=== PATIENT | female | born 1970 | race Caucasian/White ===

== ENCOUNTER 2017-11-16 14:46 | Emergency (ER) | payer MEDICARE, OTHER ==
[2017-11-16] MEDS ORDERED: 0.9 % SODIUM CHLORIDE 1,000 ML BAG IV ONE (14:50)
[2017-11-16] MEDS ORDERED: ASPIRIN 81 MG CHEWABLE TABLET PO ONE (14:50)
[2017-11-16] MEDS ORDERED: ONDANSETRON HCL IV 4 MG/2 ML VIAL IVP ONE (14:50)
[2017-11-16] MEDS ORDERED: MORPHINE SULFATE 4MG/ML PREFILLED SYRINGE IVP ONE (14:59)
--- NOTE | 2017-11-16 14:59 | Emergency Department Record ---
History of Present Illness - General Chief Complaint: Chest Pain Stated Complaint: CHEST PAIN Source: Patient Mode of Arrival: Ambulatory Limitations: No limitations - History of Present Illness Initial Comments: 46 yo female presents with right lower chest pain that she describes as a squeeze or pressure. The onset was this morning around 9am. The discomfort comes and goes. She has some nausea associated. No known history of heart disease. The pain in over the right lower chest/RUQ and radiates up the chest. She feels fatigued and tired. No back pain. No leg pain that is new. The pain is not related to position or exertion. She has RA and deals with chronic pain. She is a smoker with elevated cholesterol. Her PCP is Dr Perez. No prior cardiac care or testing. She has noted for some time that eating can bring on a similar pain in the RUQ but it does not usually radiate to the chest. No prior US to check for gall stones. MD Complaint: Chest pain -: Hour(s) (6) Onset: During rest Pain Location: Substernal Pain Radiation: Abdomen Severity: Moderate Quality: Tightness Consistency: Intermittent Improves With: Nothing Worsens With: Nothing Anginal Symptoms: Dyspnea, Nausea Treatments Prior to Arrival: None - Related Data Home Medications Medication Instructions Recorded Confirmed Last Taken Ascorbic Acid [Vitamin C] 1,000 mg PO DAILY 11/16/17 11/16/17 11/16/17 Calcium Carbonate [Calcium] 600 mg PO DAILY 11/16/17 11/16/17 11/16/17 Celecoxib [Celebrex] 200 mg PO DAILY 11/16/17 11/16/17 11/16/17 Clotrimazole/Betamethasone Dip 1 apply TOP ASDIR 11/16/17 11/16/17 11/16/17 [Lotrisone] Diclofenac Sodium [Voltaren] 1 apply TOP ASDIR 11/16/17 11/16/17 11/16/17 Lansoprazole [Prevacid] 30 mg PO DAILY 11/16/17 11/16/17 11/16/17 Multivitamin,Therapeutic [Thera] 1 each PO DAILY 11/16/17 11/16/17 11/16/17 Ranitidine HCl [Zantac] 150 mg PO BID 11/16/17 11/16/17 11/16/17 Teriparatide [Forteo] 2.4 ml SQ DAILY 11/16/17 11/16/17 11/16/17 Allergies Allergy/AdvReac Type Severity Reaction Status Date / Time No Known Drug Allergies Allergy Verified 11/16/17 14:49 Review of Systems Constitutional: Denies: Chills, Fever, Malaise, Weakness Eyes: Denies: Eye discharge, Eye pain ENT: Denies: Congestion, Dental pain, Epistaxis, Throat pain Respiratory: Reports: Dyspnea. Denies: Cough, Hemoptysis, Wheezes Cardiovascular: Reports: Chest pain. Denies: Dyspnea on exertion, Edema, Palpitations, Syncope Endocrine: Denies: Fatigue, Polydipsia, Polyuria Gastrointestinal: Reports: Nausea, Other (GERD). Denies: Abdominal pain, Diarrhea, Vomiting Genitourinary: Denies: Dysuria, Urgency Musculoskeletal: Reports: As per HPI, Arthralgia, Joint swelling, Myalgia. Denies: Back pain, Neck pain Skin: Denies: Bruising, Change in color, Rash Neurological: Denies: Headache, Numbness, Weakness Psychiatric: Denies: Anxiety Hematological/Lymphatic: Denies: Blood Clots, Easy bleeding, Easy bruising, Swollen glands Past Medical History - SOCIAL HISTORY Smoking Status: Current some day smoker - RESPIRATORY Hx Respiratory Disorders: No - CARDIOVASCULAR Hx Cardio Disorders: No - NEURO Hx Neuro Disorders: Yes Hx Headaches: Yes - GI Hx GI Disorders: No - Hx Genitourinary Disorders: Yes Hx Kidney Stones: Yes - ENDOCRINE Hx Endocrine Disorders: No - MUSCULOSKELETAL Hx Musculoskeletal Disorders: No - PSYCH Hx Psych Problems: No - HEMATOLOGY/ONCOLOGY Hx Hematology/Oncology Disorders: No Physical Exam - General General Appearance: Alert, Oriented x3, Cooperative, No acute distress Limitations: No limitations - Head Head exam: Normal inspection - Eye Eye exam: Normal appearance, PERRL. negative: Conjunctival injection, Scleral icterus - ENT ENT exam: Normal exam Ear exam: Normal external inspection Nasal Exam: Normal inspection Mouth exam: Normal external inspection Teeth exam: Normal inspection - Neck Neck exam: Normal inspection, Full ROM. negative: Tenderness - Respiratory Respiratory exam: Normal lung sounds bilaterally. negative: Respiratory distress - Cardiovascular Cardiovascular Exam: Regular rate, Normal rhythm, Normal heart sounds Peripheral Pulses: 2+: Radial (R), Radial (L) - GI/Abdominal GI/Abdominal exam: Soft. negative: Tenderness - Rectal Rectal exam: Deferred - exam: Deferred - Extremities Extremities exam: Normal inspection, Full ROM, Normal capillary refill. negative: Tenderness - Back Back exam: Reports: Normal inspection, Full ROM. Denies: Muscle spasm, Rash noted, Tenderness - Neurological Neurological exam: Alert, Normal gait, Oriented X3 - Psychiatric Psychiatric exam: Normal affect, Normal mood - Skin Skin exam: Dry, Intact, Normal color, Warm Course - Reevaluation(s) Reevaluation #1: 11/16/17 15:15 EKG 1451 NSR rate 86, intervals normal, axis N, ST NS septal changes. 11/16/17 15:32 No changes on the BMP 11/16/17 15:33 The patient reports she is relaxed and no pain at this time. 11/16/17 15:47 The Troponin was normal at <0.01 The CXR was reviewed and is negative 11/16/17 16:03 The case and EKG were discussed with Dr Monk of cardiology. He personally reviewed the EKG. Given the onset of pain was over 6 hours he recommends doing a stress test this afternoon. The patient was informed and agrees. The order was placed. 11/16/17 16:09 11/16/17 17:01 Dr Monk reviewed the stress test. The stress test was normal for 8 minutes and 10 METS. No signs of cardiac ischemia. Given the RUQ pain. I recommend US as well today. The patient agrees. She tolerated the stress test well. 11/16/17 18:22 The abdominal US was negative for gall stones DC home with referral to GI for recurrent abdominal pain in the upper right and epigastric Medical Decision Making - Lab Data Result diagrams: 11/16/17 14:50 11/16/17 14:50 Disposition Disposition: Discharge Clinical Impression: Atypical chest pain, RUQ pain Disposition: Home, Self-Care Condition: (1) Good Instructions: Chest Pain (ED), Abdominal Pain (ED) Additional Instructions: Call your doctor to be seen this week for close follow up You have been referred for a GI consultation Return to the ER if you have any return of chest pain Referrals: RUBÉN ARCE [MEDICAL DOCTOR] - Forms: Patient Portal Access Time of Disposition: 18:27 Quality - Quality Measures Quality Measures: N/A - Blood Pressure Screening Does Patient Have Any of the Following: No Blood Pressure Classification: Pre-Hypertensive BP Reading Systolic Measurement: 137 Diastolic Measurement: 87 Screening for High Blood Pressure: < Pre-Hypertensive BP, F/U Documented > [ G8950] Pre-Hypertensive Follow-up Interventions: Referral to alternative/primary care provider.
[2017-11-16 15:01] LABS: BASO % 0.3 % (0-6); EOS % 2.4 % (0-6); GRAN % 59.5 % (47-80); HEMATOCRIT 43.2 % (35.0-47.0); HEMOGLOBIN 14.4 gm/dl (11.6-16.0); LYMPH % 31.3 % (16-45); MEAN CELL VOLUME 92.3 fl (81-97); MEAN CORPUSCULAR HEMOGLOBIN 30.8 pg (27-33); MEAN CORPUSCULAR HGB CONC 33.3 g/dl (32-36); MEAN PLATELET VOLUME 9.4 fl (7.4-10.4); MONO % 6.5 % (0-9); PLATELET COUNT 311 K/uL (130-400); RED BLOOD COUNT 4.68 M/uL (3.80-5.40); RED CELL DISTRIBUTION WIDTH 13.8 % (11.5-14.5); WHITE BLOOD COUNT W/O DIFF 9.6 K/uL (4.2-12.2)
[2017-11-16 15:14] LABS: PROTHROMBIN TIME (PATIENT) 10.9 SECONDS (9.5-12.1)
[2017-11-16 15:15] LABS: BLOOD UREA NITROGEN 19 mg/dL (6-20); CREATININE 0.6 mg/dL (0.5-0.9); EST GLOMERULAR FILTRATION RATE > 60 mL/min; TOTAL PROTEIN 7.5 g/dL (6.6-8.7)
[2017-11-16 15:17] LABS: GLUCOSE,RANDOM 91 mg/dL (74-109)
[2017-11-16 15:20] LABS: ALB/GLOB RATIO 1.6 (1.1-1.8); ALBUMIN 4.6 g/dL (4.0-5.0); ALKALINE PHOSPHATASE 92 U/L (35-104); ALT/SGPT 24 U/L (<33); AST/SGOT 22 U/L (10.0-35.0)
--- NOTE | 2017-11-16 20:25 | Stress Test Report ---
DATE OF PROCEDURE: 11/16/2017 INTERPRETING PHYSICIAN: Nehemiah Monk M.D. PRIMARY CARE PHYSICIAN: Dr. Delia Perez REFERRING PHYSICIAN: Dr. Wang Diggs INDICATIONS: Chest pain. The patient's resting ECG shows a sinus rhythm but nonspecific T-wave changes in the anteroseptal leads. The patient was exercised on a motorized treadmill using a standard Tung protocol for a total of 8 minutes and 40 seconds achieving 154 beats per minute , which is 89% of the maximum predicted heart rate for her age. The patient's resting blood pressure was 126/71 mmHg and her peak blood pressure was 153/81 mmHg. The patient didn't have an abnormal symptoms during the stress test. The stress test was stopped because of achievement of the target heart rate as well as fatigue. The patient's ECG doesn't show any significant ST or T-wave changes suggestive of ischemia. No arrhythmia is seen either. IMPRESSION: 1. NORMAL ECG RESPONSE TO EXERCISE STRESS WHILE ACHIEVING 9.5 METS OF WORKLOAD. 2. AVERAGE EXERCISE CAPACITY FOR AGE. JOB NUMBER: [id number] MTDD
--- NOTE | 2017-11-17 12:50 | RADIOLOGY REPORT ---
EXAM: CHEST, SINGLE VIEW HISTORY: CHEST PAIN. TECHNIQUE: A single frontal view of the chest was obtained. Comparison: None. FINDINGS: The heart size is at the upper limits of normal. Osteopenia. The lungs are clear. No pneumothorax. IMPRESSION: NO ACUTE CARDIOPULMONARY PROCESS. JOB NUMBER: [id number] MTDD
--- NOTE | 2017-11-17 12:57 | ULTRASOUND REPORT ---
EXAM: COMPLETE ABDOMEN ULTRASOUND HISTORY: RIGHT UPPER QUADRANT ABDOMINAL PAIN. ACID REFLUX. NAUSEA. TECHNIQUE: Complete real-time ultrasound examination of the abdomen was performed. Comparison: None. FINDINGS: The majority of the pancreas was visualized and was negative as seen with no pancreatic mass or peripancreatic fluid collection evident. There is probably some mild atheromatous plaque in the abdominal aorta, but no aneurysm evident. The IVC was negative as seen. The liver appears negative with no definite hepatic mass or intrahepatic biliary dilatation seen. The right kidney measures about 12 cm in length with no hydronephrosis evident. No gallstones seen within the gallbladder and no pericholecystic fluid collection evident. The apprentice instrument technician indicates a negative sonographic Martinez's sign as well. The common duct was seen and was of normal caliber. The spleen appears negative. The left kidney measures about 13 cm in length with no hydronephrosis evident. IMPRESSION: THE EMERGENCY ABDOMINAL ULTRASOUND APPEARS ESSENTIALLY NEGATIVE. NO GALLSTONES OR BILIARY DILATATION SEEN. NO HYDRONEPHROSIS IDENTIFIED. JOB NUMBER: [id number] MTDD
== END 2017-11-16 18:42 | disposition home or self-care (01) ==
LOC: ER 14:46
DX: R07.89 Other chest pain (principal); R10.11 Right upper quadrant pain; R11.0 Nausea; R06.00 Dyspnea, unspecified; F17.210 Nicotine dependence, cigarettes, uncomplicated
CPT/HCPCS: 99284 ×2; 96374; 96375; 83690; 85025; 85730; 85610; 80053; 84484; 71045; 76700; 93017; J2405; J2274; J7030

== ENCOUNTER 2018-05-19 10:34 | Day surgery (SDC) | payer MEDICARE, OTHER ==
[2018-05-19] MEDS ORDERED: LIDOCAINE 2% MDV (20MG/ML) 20ML VIAL IV ONE (10:35)
[2018-05-19] MEDS ORDERED: PROPOFOL 10 MG/ML VIAL IV ONE (10:35)
--- NOTE | 2018-05-20 10:30 | Operative Note ---
DATE OF SURGERY: 2017 OPERATION: ESOPHAGOGASTRODUODENOSCOPY with biopsy. PREOPERATIVE DIAGNOSIS: Dyspepsia. POSTOPERATIVE DIAGNOSIS: Irregular Z line and nonspecific gastritis. PROCEDURE: After informed consent was obtained from the patient, she was placed in the left lateral decubitus position in the endoscopy suite, sedated and monitored by the department of anesthesia. Once sedated, a well-lubricated [id number] gastroscope was placed in the posterior oropharynx and under direct visualization passed to the proximal esophagus. The endoscope was advanced through the proximal, mid, and distal esophagus. The GE junction was slightly irregular. No ulcers, erosions, strictures, varices, or mass lesions were seen. The gastric body demonstrated normal distensibility, normal rugal folds. There were flecks of heme throughout the gastric body and the antrum but no dawood ulcers or erosions were seen. The pylorus, duodenal bulb, and sweep were unremarkable. J-turn views of the proximal stomach were unremarkable as well. The endoscope was straightened. Random gastric biopsies were obtained. GE junction biopsies were obtained. The endoscope was removed from the patient with no new findings noted. RECOMMENDATIONS: I would suggest the patient be seen by Dr. Boogie for evaluation of possible normokinetic biliary issues. We will await results of the biopsies in the meantime. Also, the patient should have a colonoscopy scheduled at some point in the near future. As always, thank you for allowing me to participate in the healthcare of your patients. CC: Delia Perez MD [facility]ITAL[facility]
== END 2018-05-19 12:20 | disposition home or self-care (01) ==
LOC: HOP 10:34
PROVIDERS: ATTEND Internal Medicine Gastroenterology
DX: R10.13 Epigastric pain (principal); K31.89 Other diseases of stomach and duodenum; K29.70 Gastritis, unspecified, without bleeding

== ENCOUNTER 2018-05-30 07:25 | Day surgery (SDC) | payer MEDICARE, OTHER ==
[~2018-05-30 07:25] MED LIST: ACETAMINOPHEN 1,000 MG/100 ML BTL IV ONE; FAMOTIDINE 20MG TABLET PO ONE; MECLIZINE 25 MG TABLET PO ONE; METOCLOPRAMIDE 10 MG TABLET PO ONE
[2018-05-30] MEDS ORDERED: ROCURONIUM BROMIDE 50MG/5ML VIAL IV ONE (07:26)
[2018-05-30] MEDS ORDERED: DEXAMETHASONE 4 MG/ML 1ML VIAL IVP ONE (07:26)
[2018-05-30] MEDS ORDERED: FENTANYL PF 100MCG/2ML VIAL IV ONE (07:26)
[2018-05-30] MEDS ORDERED: SCOPOLAMINE 1 PATCH TDSY TD ONE (07:26)
[2018-05-30] MEDS ORDERED: BUPIVACAINE 0.25% W/EPI MPF 30ML VIAL IVP ONE (07:26)
[2018-05-30] MEDS ORDERED: ONDANSETRON HCL IV 4 MG/2 ML VIAL IVP ONE (07:26)
[2018-05-30] MEDS ORDERED: HYDROMORPHONE HCL 2 MG/ML VIAL IV ONE (07:26)
[2018-05-30] MEDS ORDERED: LIDOCAINE 2% MDV (20MG/ML) 20ML VIAL IV ONE (07:26)
[2018-05-30] MEDS ORDERED: DIPHENHYDRAMINE HCL 50 MG/ML VIAL IVP ONE (07:26)
[2018-05-30] MEDS ORDERED: PROPOFOL 10 MG/ML VIAL IV ONE (07:26)
[2018-05-30] MEDS ORDERED: DESFLURANE 240 ML BTL INH ONE (07:26)
[2018-05-30] MEDS ORDERED: MIDAZOLAM HCL 2MG/2ML VIAL IV ONE (07:26)
[2018-05-30] MEDS ORDERED: GLYCOPYRROLATE 0.2 MG/ML ML IV ONE (07:26)
[2018-05-30] MEDS ORDERED: HYDROCODONE/APAP 5/325MG TABLET PO ONE (07:26)
--- NOTE | 2018-05-31 10:50 | Operative Note ---
DATE OF SURGERY: 05/30/2018 Surgeon: Haroon Boogie DO PREOPERATIVE DIAGNOSIS: Symptomatic biliary dyskinesia. POSTOPERATIVE DIAGNOSIS: Symptomatic biliary dyskinesia. OPERATION: Laparoscopic cholecystectomy. Indication: The patient is a 47-year-old female who presented to the office with ongoing right upper quadrant pain. For the most part, gallbladder imaging studies were all normal with the exception of some pain with Kinevac injection. Upper endoscopy is normal as well. We did discuss cholecystectomy in light of normal imaging. Risks, benefits, and alternatives were discussed. Risks include bleeding, infection, nonresolution of her symptoms. She understood this fully. PROCEDURE: Thereafter, consent was signed and questions answered. She was taken to the operating room and placed in a supine position. General anesthesia was administered per the department of anesthesia. The patient's abdomen was prepped and draped in the usual sterile fashion. The infraumbilical region was anesthetized with a total of 5 mL of 0.25% Sensorcaine with epinephrine. A 2 cm infraumbilical incision was made. This was carried down to the anterior rectus fascia. This was incised. Ruben clamps were placed on the fascial edges and brought up into the wound. Stay sutures of 0 Vicryl were placed. Posterior rectus sheath was identified and incised. The peritoneal cavity was entered bluntly. At this time, a 10 mm blunt Alan port was placed. Adequate pneumoperitoneum was established. Under direct visualization, additional 5 mm epigastric and two 5 mm right subcostal ports were placed. The gallbladder was identified. It was retracted in a cephalad and lateral direction opening up the angle of Calot. The hepatocystic triangle was thoroughly dissected out. There was no aberrant anatomy, no posterior ductal structures. The cystic duct and cystic artery were clearly identified. Each one was doubly clipped and cut in a standard fashion. Gallbladder was then taken off the liver bed with Kishan harmonic. This was extracted through the umbilical port. Right upper quadrant was rechecked and found to be hemostatic. No bleeding. No bile leaking. No bowel injury noted. The patient was leveled out. The pneumoperitoneum was released. All ports were removed. The fascia was closed with 0 Vicryl in a [id number] fashion. The skin at all ports was closed with 4-0 Vicryl. The patient was taken to the recovery room in satisfactory condition. FINDINGS AT THE TIME OF SURGERY: Symptomatic biliary dyskinesia. Final pathology pending. CC: Delia Perez MD MTDD
== END 2018-05-30 10:55 | disposition home or self-care (01) ==
LOC: SUR 07:25
PROVIDERS: ATTEND Surgery
DX: K82.8 Other specified diseases of gallbladder (principal); E78.00 Pure hypercholesterolemia, unspecified
CPT/HCPCS: J1200; J2405

== ENCOUNTER 2018-07-21 10:31 | Day surgery (SDC) | payer MEDICARE, OTHER ==
[2018-07-21] MEDS ORDERED: LIDOCAINE 2% MDV (20MG/ML) 20ML VIAL IV ONE (10:32)
[2018-07-21] MEDS ORDERED: PROPOFOL 10 MG/ML VIAL IV ONE (10:32)
--- NOTE | 2018-07-22 10:40 | Operative Note ---
DATE OF SURGERY: 07/21/2018 OPERATION: COLONOSCOPY with cold forceps polypectomy x2. PREOPERATIVE DIAGNOSIS: Screening and change in bowel habits. POSTOPERATIVE DIAGNOSIS: Sigmoid colon polyps x2, status post cold forceps x2. PREPARATION QUALITY: Excellent. ESTIMATED BLOOD LOSS: Minimum. COMPLICATIONS: None apparent. PROCEDURE: After informed consent was obtained from the patient, she was placed in the left lateral decubitus position in the endoscopy suite, sedated and monitored by the department of anesthesia. Digital rectal examination was unremarkable. A well-lubricated [id number] colonoscope was inserted into the rectum and advanced to the cecum. Preparation quality was excellent. The cecum, cecal bulb, ileocecal valve, appendiceal orifice, ascending colon, transverse colon, and descending colon were free of inflammatory changes, mass lesions, or polyps. There were 2 diminutive sigmoid colon polyps each removed with a cold forceps. The remainder of the sigmoid colon was unremarkable. The rectum was unremarkable in forward and J-turn views other than some scarring changes presumably from prior hemorrhoidectomy. The endoscope was then straightened, the rectal ampulla deflated, and the endoscope was removed. RECOMMENDATIONS: The patient should resume her medications and diet. She will require repeat colonoscopy in 5-10 years pending tissue histology. As always, thank you for allowing me to participate in the healthcare of your patients. CC: Delia Perez MD [facility] SYSTEMFlorin
== END 2018-07-21 11:47 | disposition home or self-care (01) ==
LOC: HOP 10:31
PROVIDERS: ATTEND Internal Medicine Gastroenterology
DX: R19.4 Change in bowel habit (principal); K63.5 Polyp of colon; M19.90 Unspecified osteoarthritis, unspecified site

== ENCOUNTER 2019-04-14 10:38 | Emergency (ER) | payer MEDICARE, OTHER ==
[2019-04-14] MEDS ORDERED: ONDANSETRON HCL IV 4 MG/2 ML VIAL IVP ONE (10:48)
[2019-04-14] MEDS ORDERED: MORPHINE SULFATE 5 MG/ML VIAL IVP ONE ×2 (10:48→11:39)
--- NOTE | 2019-04-14 10:48 | Emergency Department Record ---
History of Present Illness - General Stated complaint: FLANK PAIN Time Seen by Provider: 04/14/19 10:40 Source: Patient Mode of Arrival: Ambulatory Limitations: No limitations - History of Present Illness Initial comments: 48 yo female presents with flank pain. She states she had about 4 days ago a diagnosis of UTI. At that time she was having frequency and urinary discomfort. She was seen and treated in the [facility]. She is on day 4 of Nitrofurantoin. Today she developed abrupt onset suprafubic pain. She also noted some blood in the urine today. The pain is very sharp like a pressure to void. No retention. No fevers. Prior history of renal stones. No fevers. She is nauseated. She has had a few loose stools. No fevers or chills. Today's pain seem similar to prior renal stone passage with abrupt onset and sharp sensation. MD Complaint: Dysuria -: Days(s) (4) Location: Perineum Radiation: Other Severity: Severe Quality: Aching, Sharp, Stabbing Consistency: Constant Improves with: None Worsens with: Urination Associated Symptoms: Dysuria, Hematuria, Loss of appetite, Nausea/vomiting - Related Data Previous Rx's Medication Instructions Recorded Hydrocodone/APAP 5/325Mg [Modena 1 each PO Q6H #8 tab 04/14/19 5Mg/325Mg] Ondansetron [Zofran Odt] 4 mg PO Q8H #12 tab.rapdis 04/14/19 Tamsulosin HCl [Flomax] 0.4 mg PO DAILY #7 cap.er.24h 04/14/19 Allergies Allergy/AdvReac Type Severity Reaction Status Date / Time No Known Drug Allergies Allergy Unverified 04/10/19 09:08 Review of Systems Constitutional: Denies: Chills, Fever, Malaise, Weakness Eyes: Denies: Eye discharge ENT: Denies: Congestion, Dental pain, Epistaxis, Throat pain Respiratory: Denies: Cough, Dyspnea Cardiovascular: Denies: Chest pain, Palpitations, Syncope Endocrine: Denies: Fatigue, Polydipsia, Polyuria Gastrointestinal: Reports: Abdominal pain, Diarrhea, Nausea, Vomiting Genitourinary: Reports: Dysuria, Hematuria, Urgency. Denies: Abnormal menses, Incontinence, Retention Musculoskeletal: Reports: Back pain (chronic). Denies: Arthralgia Skin: Denies: Bruising, Change in color, Rash Neurological: Denies: Headache Psychiatric: Denies: Anxiety Hematological/Lymphatic: Denies: Easy bleeding, Easy bruising Past Medical History - SOCIAL HISTORY Smoking Status: Current some day smoker - RESPIRATORY Hx Respiratory Disorders: Yes Hx Bronchitis: Yes Hx Pneumonia: Yes (as a child) - CARDIOVASCULAR Hx Cardio Disorders: Yes Hx Chest Pain: Yes (R/T gallbladder) Hx Vascular Disease: Yes ("poor circulation" takes meds for this) - NEURO Hx Neuro Disorders: Yes Hx Headaches: Yes Hx of Migraines: Yes (10 - 15 x's a month) Hx Seizures: Yes (as a child petite mal out grew them) - GI Hx GI Disorders: Yes Hx Abdominal Pain: Yes Hx Reflux: Yes (on meds) Hx Nausea/Vomiting: Yes - Hx Genitourinary Disorders: Yes Hx Kidney Stones: Yes Comment:: s/p hyst endometriosis - ENDOCRINE Hx Endocrine Disorders: No - MUSCULOSKELETAL Hx Musculoskeletal Disorders: Yes Hx Arthritis: Yes Hx Fibromyalgia: Yes Hx Osteoporosis: Yes (hip) - PSYCH Hx Psych Problems: Yes Hx Anxiety: Yes (r/t pain) - HEMATOLOGY/ONCOLOGY Hx Hematology/Oncology Disorders: No Family Medical History Hx Heart Disease: Mother Physical Exam - General General Appearance: Alert, Oriented x3, Cooperative, No acute distress Limitations: No limitations - Head Head exam: Atraumatic, Normal inspection - Eye Eye exam: Normal appearance, PERRL. negative: Conjunctival injection, Scleral icterus - ENT ENT exam: Normal exam, Mucous membranes moist Ear exam: Normal external inspection Nasal Exam: Normal inspection Mouth exam: Normal external inspection - Neck Neck exam: Normal inspection - Respiratory Respiratory exam: Normal lung sounds bilaterally. negative: Respiratory distress - Cardiovascular Cardiovascular Exam: Regular rate, Normal rhythm, Normal heart sounds - GI/Abdominal GI/Abdominal exam: Soft, Tenderness (minimal to mild suprapubic tenderness, soft abdomen) - Rectal Rectal exam: Deferred - Extremities Extremities exam: Normal inspection. negative: Calf tenderness, Pedal edema, Tenderness - Back Back exam: Reports: Other (pain patch on for chronic back pain). Denies: CVA tenderness (R), CVA tenderness (L), Paraspinal tenderness, Tenderness - Neurological Neurological exam: Alert, Oriented X3 - Psychiatric Psychiatric exam: Normal affect, Normal mood - Skin Skin exam: Dry, Intact, Normal color, Warm Course - Reevaluation(s) Reevaluation #1: 04/14/19 11:29 The CBC was reviewed The WBC is 15 The BMP is normal 04/14/19 11:55 Trace blood in the urine otherwise negative No signs of infection on the UA. No WBC's or Bacteria. Nitrite Negative 04/14/19 12:51 CT was reviewed 2.2 mm distal UVJ stone. Otherwise negative for other acute process. 04/14/19 12:59 04/14/19 13:23 The patient is very relaxed and comfortable Pain is controlled We have reviewed the labs, ua and CT We discussed at length home care, follow up recommendation and reasons to return to the ED for immediate re-evaluation She has passed stones before and she is very comfortable with the plan Medical Decision Making - Lab Data Result diagrams: 04/14/19 11:00 04/14/19 11:00 Disposition Disposition: Discharge Clinical Impression: Renal colic on left side Disposition: Home, Self-Care Condition: (1) Good Instructions: Renal Colic (ED) Additional Instructions: Review this ER visit and the tests performed with your family doctor Call your doctor for the next available follow up appointment Strain your urine to look for the stone Return to the ER for a recheck if worse, any new concerns or questions Prescriptions: Tamsulosin HCl [Flomax] 0.4 mg PO DAILY #7 cap.er.24h Hydrocodone/APAP 5/325Mg [Modena 5Mg/325Mg] 1 each PO Q6H #8 tab Ondansetron [Zofran Odt] 4 mg PO Q8H #12 tab.rapdis Quality - Quality Measures Quality Measures: N/A - Blood Pressure Screening Does Patient Have Any of the Following: Active Dx of HTN Blood Pressure Classification: Hypertensive Reading Systolic Measurement: 128 Diastolic Measurement: 98 Screening for High Blood Pressure: Patient Exclusion, Hx of HTN [G9744]
[2019-04-14] MEDS ORDERED: LIDOCAINE UROJECT 10 ML APPL MM ONE (10:49)
[2019-04-14 11:11] LABS: ABSOLUTE NEUTROPHIL COUNT 10.26; BASO % 0.3 % (0-6); EOS % 5.2 % (0-6); GRAN % 66.9 % (47-80); HEMATOCRIT 44.2 % (35.0-47.0); HEMOGLOBIN 14.8 gm/dl (11.6-16.0); MEAN CELL VOLUME 89.5 fl (81-97); MEAN CORPUSCULAR HGB CONC 33.5 g/dl (32-36); MEAN PLATELET VOLUME 9.7 fl (7.4-10.4); MONO % 9.6 % (0-9); PLATELET COUNT 336 K/uL (130-400); RED BLOOD COUNT 4.94 M/uL (3.80-5.40); WHITE BLOOD COUNT W/O DIFF 15.3 K/uL (4.2-12.2)
[2019-04-14 11:21] LABS: BLOOD UREA NITROGEN 15 mg/dL (6-20); CREATININE 0.7 mg/dL (0.5-0.9); EST GLOMERULAR FILTRATION RATE > 60 mL/min
[2019-04-14 11:24] LABS: GLUCOSE,RANDOM 117 mg/dL (74-109)
[2019-04-14 11:26] LABS: URINE APPEARANCE CLEAR; URINE BILIRUBIN NEGATIVE (NEGATIVE); URINE BLOOD TRACE-I (NEGATIVE); URINE COLOR YELLOW; URINE GLUCOSE (UA) NEGATIVE (NEGATIVE); URINE KETONE NEGATIVE (NEGATIVE); URINE LEUKOCYTE ESTERASE TRACE (NEGATIVE); URINE NITRITE NEGATIVE (NEGATIVE); URINE PROTEIN NEGATIVE (NEGATIVE); URINE UROBILINOGEN 0.2 E.U./dL (0.20 - 1.00)
[2019-04-14 11:27] LABS: ALB/GLOB RATIO 1.3 (1.1-1.8); ALBUMIN 4.5 g/dL (4.0-5.0); ALKALINE PHOSPHATASE 93 U/L (35-104); ALT/SGPT 22 U/L (<33); AST/SGOT 18 U/L (10.0-35.0)
[2019-04-14 11:35] LABS: URINE RBC 0 - 2 (NONE SEEN); URINE WBC 0 - 2 (0-2/hpf)
[2019-04-14] MEDS ORDERED: TAMSULOSIN HCL 0.4 MG CAP.ER.24H PO ONE (12:47)
[2019-04-14] MEDS ORDERED: KETOROLAC 30 MG/ML VIAL IVP ONE (12:47)
[2019-04-14] MEDS ORDERED: ONDANSETRON 4 MG ODT TABLET SL ONE (13:22)
[2019-04-14] MEDS ORDERED: HYDROCODONE/APAP 5/325MG TABLET PO ONE (13:22)
--- NOTE | 2019-04-18 05:17 | CT SCAN REPORT ---
EXAM: CT OF THE ABDOMEN AND PELVIS WITHOUT CONTRAST HISTORY: DYSURIA AND HEMATURIA. PAIN IN VULVAR AREA. TECHNIQUE: Helical CT examination of the abdomen and pelvis was performed without oral or intravenous contrast administration. Lack of oral and IV contrast utilization limits evaluation of the bowel and solid viscera respectively. Comparison: Abdominal ultrasound dated 11/16/17. FINDINGS: There is mild dependent atelectasis within the lung bases. No pleural or pericardial effusion. The heart is not enlarged. The liver, spleen, pancreas, and adrenal glands are normal in appearance. The gallbladder is surgically absent. No gross biliary ductal dilatation given post cholecystectomy state. The kidneys are normal in position and smoothly marginated. The left kidney is mildly enlarged and there is minor left perinephric fat stranding. There is a nonobstructing calculus in the mid right kidney measuring approximately 4 mm in diameter. There are nonobstructing calculi in the lower pole of the left kidney with the largest or posteriorly located measuring 5.9 mm in maximum diameter. There is moderate to marked left hydroureteronephrosis down to the level of the vesicoureteral junction where there is a 2.2 mm obstructing calculus. There is minor associated periureteral fat stranding. The right renal collecting system is unremarkable. No intrinsic urinary bladder abnormality. No intraabdominal nor retroperitoneal lymphadenopathy. There are several nonenlarged periaortic lymph nodes visualized. The uterus is surgically absent. No pelvic mass nor adenopathy. No gross bowel dilatation nor bowel wall thickening. The appendix is surgically absent. No ascites nor pneumoperitoneum. There is a small fat filled umbilical hernia. No lytic or blastic bone lesion. IMPRESSION: 1. 2.2 MM OBSTRUCTING CALCULUS IN THE LEFT VESICOURETERAL JUNCTION CAUSING MODERATE TO HIGH GRADE HYDROURETERONEPHROSIS WITH ASSOCIATED MILD PERINEPHRIC AND PERIURETERAL FAT STRANDING. 2. BILATERAL NEPHROLITHIASIS. 3. STATUS POST CHOLECYSTECTOMY, HYSTERECTOMY, AND APPENDECTOMY. 4. SMALL FAT FILLED UMBILICAL HERNIA. JOB NUMBER: [id number] [facility]
== END 2019-04-14 13:57 | disposition home or self-care (01) ==
LOC: ER 10:38
DX: N20.0 Calculus of kidney (principal); R11.2 Nausea with vomiting, unspecified; R30.0 Dysuria; R31.0 Gross hematuria; F17.210 Nicotine dependence, cigarettes, uncomplicated; Z87.442 Personal history of urinary calculi
CPT/HCPCS: 99284 ×2; 96376; 96374; 96375; 85025; 80053; 81001; 74176; J1885; J2405

== ENCOUNTER 2019-04-19 12:45 | Emergency (ER) | payer MEDICARE, OTHER ==
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
[2019-04-19] MEDS ORDERED: METHYLPREDNISOLONE PF 125MG/VIAL IVP ONE (13:16)
[2019-04-19 13:37] LABS: ABSOLUTE NEUTROPHIL COUNT 11.02; HEMATOCRIT 41.5 % (35.0-47.0); HEMOGLOBIN 13.8 gm/dl (11.6-16.0); MEAN CELL VOLUME 90.2 fl (81-97); MEAN CORPUSCULAR HGB CONC 33.3 g/dl (32-36); MEAN PLATELET VOLUME 9.5 fl (7.4-10.4); PLATELET COUNT 411 K/uL (130-400); RED CELL DISTRIBUTION WIDTH 13.7 % (11.5-14.5); WHITE BLOOD COUNT W/O DIFF 16.9 K/uL (4.2-12.2)
[2019-04-19 13:46] LABS: BLOOD UREA NITROGEN 15 mg/dL (6-20); CREATININE 0.5 mg/dL (0.5-0.9); EST GLOMERULAR FILTRATION RATE > 60 mL/min
[2019-04-19 13:49] LABS: URINE APPEARANCE SL CLOUDY; URINE BILIRUBIN NEGATIVE (NEGATIVE); URINE BLOOD SMALL (NEGATIVE); URINE COLOR YELLOW; URINE GLUCOSE (UA) NEGATIVE (NEGATIVE); URINE KETONE NEGATIVE (NEGATIVE); URINE LEUKOCYTE ESTERASE TRACE (NEGATIVE); URINE NITRITE NEGATIVE (NEGATIVE); URINE PROTEIN NEGATIVE (NEGATIVE); URINE UROBILINOGEN 0.2 E.U./dL (0.20 - 1.00)
[2019-04-19 13:49] LABS: GLUCOSE,RANDOM 120 mg/dL (74-109)
[2019-04-19] MEDS ORDERED: POTASSIUM CHLORIDE 20 MEQ TABLET PO ONE (13:53)
[2019-04-19 13:59] LABS: PLATELET ESTIMATE NORMAL (NORMAL)
[2019-04-19 14:04] LABS: TOTAL PROTEIN 7.3 g/dL (6.6-8.7)
[2019-04-19 14:09] LABS: ALBUMIN 3.7 g/dL (4.0-5.0); ALKALINE PHOSPHATASE 101 U/L (35-104); ALT/SGPT 47 U/L (<33); AST/SGOT 20 U/L (10.0-35.0)
[2019-04-19 14:11] LABS: URINE BACTERIA 2+
[2019-04-19 14:12] LABS: URINE HYALINE CAST 0 - 5 /lpf; URINE MUCUS MODERATE
[2019-04-19 14:15] LABS: BILIRUBIN,DIRECT < 0.2 mg/dL (0-0.3)
--- NOTE | 2019-04-21 09:58 | RADIOLOGY REPORT ---
EXAM: CHEST, TWO VIEWS HISTORY: PATIENT HAS COUGH. TECHNIQUE: Two views of the chest are provided along with the comparison study dated 11/16/17. FINDINGS: The cardiomediastinal silhouette is within normal limits for size and contour. The vivian appear unremarkable. There is no radiographic evidence of a focal infiltrate, pleural effusion, or pneumothorax. Diffuse interstitial prominence suggests chronic interstitial changes bilaterally. IMPRESSION: NO RADIOGRAPHIC EVIDENCE OF AN ACUTE INTRATHORACIC PROCESS. JOB NUMBER: [id number] [facility]
--- NOTE | 2019-04-21 10:08 | CT SCAN REPORT ---
EXAM: CT SCAN OF THE ABDOMEN AND PELVIS HISTORY: PATIENT HAS A HISTORY OF KIDNEY STONES. PATIENT HAS FLANK PAIN. TECHNIQUE: Serial axial CT scan of the abdomen and pelvis was performed at 2.5 mm intervals from the dome of the diaphragm down to the pubic symphysis without the use of intravenous or oral contrast. Comparison: CT scan of the abdomen and pelvis dated 04/14/19 is provided. FINDINGS: The lung windows of the lung bases demonstrate no CT evidence of a focal infiltrate or pleural effusion. The visualized heart size and contour is within normal limits. The liver, spleen, bilateral adrenal glands, and pancreas are unremarkable. The gallbladder is not visualized. There is no CT evidence of hydronephrosis or hydroureter. Multiple nonobstructive bilateral renal calculi are noted. The largest nonobstructive calculus within the right kidney measures approximately 4.6 mm and is located within its inferior pole. The largest nonobstructive calculus within the left kidney measures 4.1 mm and is located within its inferior pole. The partially obstructing calculus that was noted within the distal left ureter adjacent to the ureterovesical junction is no longer visualized. There is mild left sided pelviectasis which may be the result of the passed calculus. The contour and caliber of the noncontrasted abdominal aorta is within normal limits. There is no CT evidence of retroperitoneal, pelvic, or inguinal lymphadenopathy. The visualized bowel gas pattern is nonspecific and nonobstructive. There is no CT evidence of free intraperitoneal fluid or free intraperitoneal air. Occasional chronic diverticula are noted without CT evidence of diverticulitis. The appendix is not clearly identified. The urinary bladder is decompressed. The uterus is absent. Bone windows demonstrate no CT evidence of a fracture or dislocation of the visualized osseous structures. IMPRESSION: 1. MINIMAL LEFT SIDED PELVIECTASIS IS IDENTIFIED WHICH IS PROBABLY THE RESULT OF THE RECENTLY PASSED DISTAL LEFT URETERAL CALCULUS. 2. MULTIPLE NONOBSTRUCTIVE BILATERAL RENAL CALCULI ARE NOTED DISCUSSED ABOVE. 3. NO CT EVIDENCE OF A NEW, ACUTE INTRAABDOMINAL PROCESS. JOB NUMBER: [id number] [facility]
== END 2019-04-19 14:55 | disposition home or self-care (01) ==
LOC: ER 12:45
DX: L30.9 Dermatitis, unspecified (principal); R21 Rash and other nonspecific skin eruption; F17.210 Nicotine dependence, cigarettes, uncomplicated; Z86.79 Personal history of other diseases of the circulatory system
CPT/HCPCS: 71046; 74176; 80048; 80076; 81001; 85027; 99283; J2930